=== PATIENT | male | born 1965 | race Caucasian/White ===

== ENCOUNTER 2017-03-05 13:01 | Emergency (ER) | payer BC ==
[2017-03-05 13:03] VITALS: TEMP 36.7; Ht 172.7 cm
[2017-03-05] MEDS ORDERED: MoRPHine SULFATE 10 MG/ML CARP/VIAL IM STA (13:31)
[2017-03-05] MEDS ORDERED: LISI2.5T5 PO (13:37)
[2017-03-05] MEDS ORDERED: GLIM1TAB2 PO (13:37)
[2017-03-05] MEDS ORDERED: GLC/500 PO (13:37)
[2017-03-05] MEDS ORDERED: EFF/375 PO (13:37)
[2017-03-05] MEDS ORDERED: EYED (13:37)
[2017-03-05] MEDS ORDERED: NVLG (13:37)
[2017-03-05] MEDS ORDERED: LISI5TAB PO (13:37)
[2017-03-05] MEDS ORDERED: INSDGIPEN SC (13:37)
--- NOTE | 2017-03-05 14:22 | DIAGNOSTIC IMAGING REPORT ---
PELVIS 1 OR 2 VIEW ROUTINE CLINICAL HISTORY: r hip pain COMPARISON: None. DISCUSSION: The bones and joint spaces appear intact. There is no evidence of fracture, dislocation or bony disease. There is no evidence for soft tissue swelling. IMPRESSION: Negative study. Electronically signed by: Aravind Stallworth M.D. 03/05/2017 2:21 PM Dictated Date/Time: 03/05/2017 2:20 PM
--- NOTE | 2017-03-05 14:26 | DIAGNOSTIC IMAGING REPORT ---
RIGHT FEMUR 2 VIEWS ROUTINE CLINICAL HISTORY: right fem pain Right pain COMPARISON: None. DISCUSSION: Findings of mild right hip trochanteric bursitis. Mild degenerative change right hip joint specifically as well as right knee. No well-defined acute bony abnormality. There is no evidence for soft tissue swelling. IMPRESSION: Mild degenerative change. Mild trochanteric bursitis right hip. Electronically signed by: Aravind Stallworth M.D. 03/05/2017 2:25 PM Dictated Date/Time: 03/05/2017 2:24 PM
--- NOTE | 2017-03-05 14:42 | DIAGNOSTIC IMAGING REPORT ---
LUMBAR SPINE 2 OR 3 VIEWS CLINICAL HISTORY: lower back pain pain COMPARISON STUDY: None FINDINGS: Mild degenerative disc change throughout the entire lumbar region. No compression deformity. Posterior on this. Be intact. No evidence for subluxation. IMPRESSION: Mild degenerative change. No acute process. Electronically signed by: Aravind Stallworth M.D. 03/05/2017 2:41 PM Dictated Date/Time: 03/05/2017 2:40 PM
[2017-03-05] MEDS ORDERED: OXYC1TAB3 PO (15:11)
[2017-03-05 15:30] VITALS: BP 97/76; PULSE 81; O2SAT 95
--- NOTE | 2017-03-05 20:04 | EMERGENCY ROOM VISIT NOTE ---
History Report prepared by Caitie: Juaquin Alejandre Under the Supervision of: Dr. Luis Manuel Read D.O. First contact with patient: 13:10 Chief Complaint: HIP PAIN Stated Complaint: RIGHT HIP, UPPER THIGH PAIN History of Present Illness The patient is a 51 year old male with a history of Type II Diabetes who presents to the Emergency Room with complaints of persistent right hip pain for the past week. The patient was working outdoors and bending down, and when he stood up he noticed the pain. The pain is worsened when bears weight on the right leg. He notes feeling a "tightening" sensation. He has had to lay down secondary to pain. The pain is also felt in the right upper leg and right side of his buttocks. He has tried Naproxen, Flexeril, heat and ice. He has not had any problems with urination or defecation. The patient denies history of trauma or back problems. He denies history of cancer, history of drug use, or recent surgeries. Patient denies headache, change in vision, fevers, chest pain, shortness of breath, nausea, vomiting, diarrhea, pain with urination, numbness in groin, weakness in legs, history of cancer, IV drug use, or recent trauma. Per who is a nurse, the patient has been on prednisone before and they were able to keep his BSG under control. Source of History: patient Onset: one week ago Position: other (right hip) Timing: other (persistent) Modifying Factors (Worsening): other (bearing weight on his right leg) Associated Symptoms: No fevers, No headache, No chest pain, No SOB, No nausea, No vomiting, No melena, No diarrhea, No urinary symptoms, No weakness, No numbness Review of Systems See HPI for pertinent positives & negatives. A total of 10 systems reviewed and were otherwise negative. Past Medical & Surgical Medical Problems: (1) Diabetes Family History Diabetes mellitus Hypertension Social History Smoking Status: Never Smoker Marital Status: Housing Status: lives with family Current/Historical Medications Scheduled Glimepiride (Glimepiride), 1 TAB PO DAILY Insulin Glargine (Lantus Solostar), 40 UNITS SC DAILY Lisinopril (Prinivil), 1 TAB PO DAILY Lisinopril (Lisinopril), 1 TAB PO DAILY Metformin Hcl (Glucophage), 500 MG PO BID Venlafaxine Hcl (Effexor), 1 TAB PO BID Scheduled PRN Oxycodone Immediate Rel Tab (Roxicodone Ir), 5 MG PO Q6H PRN for Pain Miscellaneous Medications Eye Drops (Eye Drops) Insulin Aspart (Novolog) Allergies Coded Allergies: No Known Allergies (Unverified , 03/05/17) Physical Exam Vital Signs Date Time Temp Pulse Resp B/P (MAP) Pulse Ox O2 Delivery O2 Flow Rate FiO2 03/05/17 15:30 81 16 97/76 95 03/05/17 14:44 78 18 147/89 95 Room Air 03/05/17 13:03 36.7 80 20 137/96 99 Room Air Physical Exam GENERAL: Sitting up in bed, alert, well appearing, well nourished, no distress, non-toxic EYE EXAM: normal conjunctiva. OROPHARYNX: no exudate, no erythema, lips, buccal mucosa, and tongue normal and mucous membranes are moist NECK: supple, no nuchal rigidity, no adenopathy, non-tender LUNGS: Clear to auscultation. Normal chest wall mechanics HEART: no murmurs, S1 normal and S2 normal ABDOMEN: abdomen soft, non-tender, normo-active bowel sounds, no masses, no rebound or guarding. BACK: Back is symmetrical on inspection and there is no deformity, no midline tenderness, no CVA tenderness. SKIN: no rashes and no bruising UPPER EXTREMITIES: upper extremities are grossly normal. LOWER EXTREMITIES: Flexion extension of hip knee ankle EHL 5/5 bilaterally, gross sensation is intact, DP 2/4 bilaterally, patellar and Achilles reflexes are 1/4 bilaterally. Acute reproducible tenderness right SI joint through the gluteus and into the right IT band. NEURO EXAM: Normal sensorium, cranial nerves II-XII grossly intact, normal speech, no gross weakness of arms, no gross weakness of legs. Gross sensation intact. Medical Decision & Procedures ER Provider Diagnostic Interpretation: Radiology results as stated below per my review and the radiologist's interpretation: RIGHT FEMUR 2 VIEWS ROUTINE CLINICAL HISTORY: right fem pain Right pain COMPARISON: None. DISCUSSION: Findings of mild right hip trochanteric bursitis. Mild degenerative change right hip joint specifically as well as right knee. No well-defined acute bony abnormality. There is no evidence for soft tissue swelling. IMPRESSION: Mild degenerative change. Mild trochanteric bursitis right hip. Electronically signed by: Aravind Stallworth M.D. 03/05/2017 2:25 PM Dictated Date/Time: 03/05/2017 2:24 PM LUMBAR SPINE 2 OR 3 VIEWS CLINICAL HISTORY: lower back pain pain COMPARISON STUDY: None FINDINGS: Mild degenerative disc change throughout the entire lumbar region. No compression deformity. Posterior on this. Be intact. No evidence for subluxation. IMPRESSION: Mild degenerative change. No acute process. Electronically signed by: Aravind Stallworth M.D. 03/05/2017 2:41 PM Dictated Date/Time: 03/05/2017 2:40 PM PELVIS 1 OR 2 VIEW ROUTINE CLINICAL HISTORY: r hip pain COMPARISON: None. DISCUSSION: The bones and joint spaces appear intact. There is no evidence of fracture, dislocation or bony disease. There is no evidence for soft tissue swelling. IMPRESSION: Negative study. Electronically signed by: Aravind Stallworth M.D. 03/05/2017 2:21 PM Dictated Date/Time: 03/05/2017 2:20 PM Medications Administered Medications (Trade) Dose Ordered Sig/Yang Route Start Time Stop Time Status Last Admin Dose Admin Morphine Sulfate (MoRPHine SULFATE INJ) 6 mg NOW STAT IM 03/05/17 13:31 03/05/17 13:33 DC 03/05/17 13:43 6 MG ED Course ED COURSE: Vital signs were reviewed and showed hypertension. The patients medical record was reviewed The above diagnostic studies were performed and reviewed. ED treatments and interventions as stated above. 1320: The patient was evaluated in room A9b. A complete history and physical examination was performed. 1331: Morphine Sulfate 6 mg IM. 1455: The patient is feeling better. 1500: Upon reevaluation, the patient is doing well.I discussed my findings with the patient and he understands and agrees with the treatment plan. Based on the patients age, coexisting illnesses, exam and lab findings the decision to treat as an outpatient was made. The patient remained stable while under my care. The patient appeared well at the time of discharge. Medical Decision Differential diagnoses includes but is not limited to lumbar radiculopathy, muscle strain, facture, cauda equina, mass, and disc herniation. Blood pressure screening: Patient was found to have an elevated blood pressure and was referred to their primary doctor for recheck and further treatment. Medication Reconciliation: I attest that I have personally reviewed the patient' s current medication list. Patient is a 51-year-old male who presents the ER for 3 days worth of right hip pain. He notes it radiates down the right side of his leg. He is acutely tender over the bursa and tracking through his IT band. He is completely neurologically intact. X-rays were negative. Able to ambulate without difficulty. No signs cauda equina. X-ray did suggest bursitis. I do favor this likely cause. Patient was given IM morphine with improvement of his pain. Initially discussed steroids but elected not to as he is a diabetic. Discussed with Pt concerning signs and symptoms to watch out for. Pt was instructed to follow up with their PCP and discussed with the patient their option to return to the ED at anytime for persistent or worsening symptoms. The appropriate anticipatory guidance and out-patient management, including indications for return to the emergency department, were explained at length to the patient and understood. [place] Drug Monitoring Program Search Results: patient reviewed within database, no issues identified Impression Primary Impression: Hip pain, right Scribe Attestation The scribe's documentation has been prepared under my direction and personally reviewed by me in its entirety. I confirm that the note above accurately reflects all work, treatment, procedures, and medical decision making performed by me. Departure Information Dispostion Home / Self-Care Prescriptions Oxycodone Immediate Rel Tab (ROXICODONE IR) 5 Mg Tab 5 MG PO Q6H Y for Pain, #10 TAB Prov: Luis Manuel Read, DO 03/05/17 Referrals Chiquita De La O, C.R.N.P. (PCP) Forms HOME CARE DOCUMENTATION FORM, IMPORTANT VISIT INFORMATION, WORK / SCHOOL INSTRUCTIONS Patient Instructions My [facility], Trochanteric Bursitis Additional Instructions Please follow up with your primary care doctor with in the next 24 hours. Any worsening of your symptoms, please return to the ED immediately. This includes fevers greater than 100.4, inability urinate, weakness in your legs, numbness in your groin, or any other concerning signs or symptoms from your standpoint. You were given medications during this visit that will inhibit your ability to drive, operate machinery and work. Please do NOT drive, operate machinery or work for the next 12hrs. You were also given a prescription for a narcotic/oxy IR. While taking this medication you should also not drive, operate machinery and or work.
[2017-05-06] MEDS ORDERED: CHOL20007 PO (14:11)
[2017-05-06] MEDS ORDERED: DULO60CA44 PO (14:11)
[2017-05-06] MEDS ORDERED: METF1TAB53 PO (14:11)
[2017-05-06] MEDS ORDERED: FENO48TA9 PO (14:11)
[2017-05-06] MEDS ORDERED: OXYC-88 PO (14:11)
[2017-05-06] MEDS ORDERED: LISI-461 PO (14:11)
== END 2017-03-05 15:31 | disposition home or self-care (01) ==
LOC: C.EDB 13:04 → C.EDA 15:31
DX: M25.551 Pain in right hip (principal); E11.9 Type 2 diabetes mellitus without complications; Z79.84 Long term (current) use of oral hypoglycemic drugs; Z79.4 Long term (current) use of insulin; Z83.3 Family history of diabetes mellitus; Z82.49 Family history of ischemic heart disease and other diseases of the circulatory system

== ENCOUNTER → 2017-04-17 | Outpatient (CLI) | payer BC ==
[~2017-04-17] MED LIST: CHOL20007 PO; DULO60CA44 PO; EFF/375 PO; EYED; FENO48TA9 PO; GLC/500 PO; GLIM1TAB2 PO; INSDGIPEN SC; LISI-461 PO; LISI2.5T5 PO; LISI5TAB PO; METF1TAB53 PO; NVLG; OXYC-88 PO; OXYC1TAB3 PO
[2017-04-17 13:24] LABS: ESTIMATED AVERAGE GLUCOSE 269 mg/dl; HA1C FLAG Normal (Normal)
[2017-04-17 13:26] LABS: URINE APPEARANCE CLEAR (CLEAR); URINE BILIRUBIN NEG (NEG); URINE COLOR DK YELLOW; URINE NITRITE NEG (NEG); URINE SPECIFIC GRAVITY 1.044 (1.000-1.030); UROBILINOGEN NEG (NEG); ZZUR CULT IF INDIC CLEAN CATCH NO
[2017-04-17 13:31] LABS: BASO % 0.4 %; BASO ABS # 0.04 K/uL (0-0.2); COMPLETE YES; EOS % 3.1 %; HEMATOCRIT 44.6 % (42-52); IG% 0.8 %; LYMPH % 36.8 %; LYMPH ABS # 3.57 K/uL (1.2-3.4); MEAN CELL VOLUME 85.3 fL (80-100); MEAN CORPUSCULAR HEMOGLOBIN 30.8 pg (25-34); MEAN CORPUSCULAR HGB CONC 36.1 g/dl (32-36); MEAN PLATELET VOLUME 9.4 fL (7.4-10.4); MONO % 6.5 %; NEUT % 52.4 %; PLATELET COUNT 357 K/uL (130-400); RED BLOOD COUNT 5.23 M/uL (4.7-6.1); WHITE BLOOD COUNT 9.69 K/uL (4.8-10.8)
[2017-04-17 13:33] LABS: MANUAL MICROSCOPIC REQUIRED? NO; REVIEW REQ? NO
[2017-04-17 14:00] LABS: RATIO 25.4 mcg/mg (0-30.0)
[2017-04-17 16:46] LABS: ALB/GLOB RATIO 0.9 (0.9-2); ALKALINE PHOSPHATASE 168 U/L (45-117); ALT/SGPT 31 U/L (12-78); AST/SGOT 13 U/L (15-37); BLOOD UREA NITROGEN 23 mg/dl (7-18); BUN/CREATININE RATIO 20.7 (10-20); CALCIUM 9.1 mg/dl (8.5-10.1); CARBON DIOXIDE 27 mmol/L (21-32); CHLORIDE 97 mmol/L (98-107); CHOLESTEROL 269 mg/dl (0-200); CHOLESTEROL/HDL RATIO 6.1; FERRITIN 435.3 ng/ml (8.0-388.0); GLUCOSE 386 mg/dl (70-99); HDL CHOLESTEROL 44 mg/dl; POTASSIUM 3.8 mmol/L (3.5-5.1); PROSTATE SPECIFIC ANTIGEN 0.244 ng/ml (0.000-4.000); SODIUM 132 mmol/L (136-145); TOTAL IRON BINDING CAPACITY 329 mcg/dl (250-450); TRIGLYCERIDES 620 mg/dl (0-150)
[2017-04-17 17:13] LABS: BETA-HYDROXYBUTYRATE 1.53 mg/dL (0.2-2.81)
--- NOTE | 2017-04-22 12:49 | CODING QUERY MEDICAL NECESSITY ---
CQSUPPORTING DIAGNOSIS NEEDED A supporting diagnosis is required for the test/procedure performed on this patient in order for us to be reimbursed by the patient's insurance. Please provide a supporting diagnosis for the following test/procedure listed below next to the test name along with your signature. *If there is no additional diagnosis for this patient that would support the following test/procedure please document that below next to the test/procedure. Test(s)/Procedure(s) that require a supporting diagnosis: DOS 04/17/17 PROSTATE SPECIFIC VITAMIN D TEST FOLIC ACID TEST COMPLETE BLOOD COUNT TEST Provider Signature: Date: Thank you Chelsea Avelar Health Information Management Once completed, please kindly fax back to [phone] For questions please call [phone]
== END | disposition home or self-care (01) ==
LOC: C.LAB 11:48
PROVIDERS: ATTEND Nurse Practitioner
DX: E11.9 Type 2 diabetes mellitus without complications (principal); I10 Essential (primary) hypertension; M25.551 Pain in right hip; E78.5 Hyperlipidemia, unspecified; R82.90 Unspecified abnormal findings in urine; E55.9 Vitamin D deficiency, unspecified; Z79.899 Other long term (current) drug therapy; Z79.891 Long term (current) use of opiate analgesic; E74.8 Other specified disorders of carbohydrate metabolism; M79.2 Neuralgia and neuritis, unspecified; G23.8 Other specified degenerative diseases of basal ganglia; E11.311 Type 2 diabetes mellitus with unspecified diabetic retinopathy with macular edema; R53.83 Other fatigue

== ENCOUNTER → 2017-08-05 | Outpatient (CLI) | payer BC ==
[~2017-08-05] MED LIST changes: -EFF/375 PO; -GLC/500 PO; -GLIM1TAB2 PO; -LISI2.5T5 PO; -LISI5TAB PO; -OXYC1TAB3 PO
[2017-08-05 13:10] LABS: BASO % 0.4 %; BASO ABS # 0.04 K/uL (0-0.2); COMPLETE YES; EOS % 13.5 %; HEMATOCRIT 41.3 % (42-52); IG% 0.2 %; LYMPH % 34.4 %; LYMPH ABS # 3.12 K/uL (1.2-3.4); MEAN CELL VOLUME 86.9 fL (80-100); MEAN CORPUSCULAR HEMOGLOBIN 30.5 pg (25-34); MEAN CORPUSCULAR HGB CONC 35.1 g/dl (32-36); MEAN PLATELET VOLUME 9.9 fL (7.4-10.4); MONO % 7.3 %; NEUT % 44.2 %; PLATELET COUNT 260 K/uL (130-400); RED BLOOD COUNT 4.75 M/uL (4.7-6.1); WHITE BLOOD COUNT 9.06 K/uL (4.8-10.8)
[2017-08-05 13:55] LABS: ALKALINE PHOSPHATASE 116 U/L (45-117); ALT/SGPT 40 U/L (12-78); AST/SGOT 19 U/L (15-37); BLOOD UREA NITROGEN 17 mg/dl (7-18); CALCIUM 9.5 mg/dl (8.5-10.1); CARBON DIOXIDE 29 mmol/L (21-32); CHLORIDE 96 mmol/L (98-107); CHOLESTEROL 243 mg/dl (0-200); CHOLESTEROL/HDL RATIO 4.6; FERRITIN 271.9 ng/ml (8.0-388.0); GLUCOSE 407 mg/dl (70-99); HDL CHOLESTEROL 53 mg/dl; LDL CHOLESTEROL CALCULATED 134 mg/dl; MAGNESIUM 1.4 mg/dl (1.8-2.4); POTASSIUM 4.3 mmol/L (3.5-5.1); SODIUM 129 mmol/L (136-145); TRIGLYCERIDES 280 mg/dl (0-150); VERY LOW DENSITY LIPOPROT CALC 56 mg/dl
[2017-08-05 13:56] LABS: CREATININE 1.19 mg/dl (0.60-1.40); TOTAL IRON BINDING CAPACITY 381 mcg/dl (250-450)
[2017-08-05 13:57] LABS: BUN/CREATININE RATIO 13.9 (10-20); ESTIMATED AVERAGE GLUCOSE 266 mg/dl; HA1C FLAG Normal (Normal)
[2017-08-05 14:09] LABS: BETA-HYDROXYBUTYRATE 1.12 mg/dL (0.2-2.81)
[2017-08-05 14:40] LABS: URINE APPEARANCE CLEAR (CLEAR); URINE BILIRUBIN NEG (NEG); URINE COLOR YELLOW; URINE NITRITE NEG (NEG); URINE SPECIFIC GRAVITY 1.033 (1.000-1.030); UROBILINOGEN NEG (NEG); ZZUR CULT IF INDIC CLEAN CATCH NO
[2017-08-05 14:42] LABS: MANUAL MICROSCOPIC REQUIRED? NO; REVIEW REQ? NO
[2017-08-05 15:04] LABS: CREATININE RANDOM URINE 86.2 mg/dl
[2017-08-05 15:15] LABS: RATIO 12.7 mcg/mg (0-30.0)
== END | disposition home or self-care (01) ==
LOC: C.LAB 11:44
PROVIDERS: ATTEND Nurse Practitioner
DX: E11.311 Type 2 diabetes mellitus with unspecified diabetic retinopathy with macular edema (principal); E78.5 Hyperlipidemia, unspecified; I10 Essential (primary) hypertension; E55.9 Vitamin D deficiency, unspecified; Z79.899 Other long term (current) drug therapy; M54.5 Low back pain; M54.10 Radiculopathy, site unspecified; F32.9 Major depressive disorder, single episode, unspecified; M25.551 Pain in right hip; M25.9 Joint disorder, unspecified; M70.61 Trochanteric bursitis, right hip

== ENCOUNTER → 2017-08-14 | Outpatient (CLI) | payer BC ==
[2017-08-14 17:36] LABS: ALT/SGPT 41 U/L (12-78); AST/SGOT 20 U/L (15-37); BLOOD UREA NITROGEN 15 mg/dl (7-18); BUN/CREATININE RATIO 17.5 (10-20); CALCIUM 8.8 mg/dl (8.5-10.1); CARBON DIOXIDE 28 mmol/L (21-32); CHLORIDE 104 mmol/L (98-107); CREATININE 0.84 mg/dl (0.60-1.40); GLUCOSE 112 mg/dl (70-99); MAGNESIUM 1.8 mg/dl (1.8-2.4); POTASSIUM 3.8 mmol/L (3.5-5.1); SODIUM 136 mmol/L (136-145)
[2017-08-14 17:39] LABS: ALKALINE PHOSPHATASE 107 U/L (45-117)
== END | disposition home or self-care (01) ==
LOC: C.CPL 15:06
PROVIDERS: ATTEND Nurse Practitioner
DX: E87.6 Hypokalemia (principal); E87.8 Other disorders of electrolyte and fluid balance, not elsewhere classified; E83.42 Hypomagnesemia; I49.9 Cardiac arrhythmia, unspecified; E11.9 Type 2 diabetes mellitus without complications; I10 Essential (primary) hypertension

== ENCOUNTER 2017-10-16 07:07 | Inpatient (IN) | payer BC ==
[2017-10-07 12:02] VITALS: Ht 172.7 cm; Wt 76.2 kg
--- NOTE | 2017-10-07 12:39 | PAT Medication Instructions ---
Service Date Oct 07, 2017. 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 Instructions For Your Scheduled Surgery - Hold the following medications 48 hours prior to surgery: Metformin Hcl (Glucophage Ext Rel), 1,000 MG PO BID - Hold the following medications the morning of surgery: Cholecalciferol (Vitamin D3), 1 TAB PO QAM Fenofibrate (Tricor), 48 MG PO QAM Glyburide (Micronase), 10 MG PO BID Insulin Aspart (Novolog) per SC Lisinopril (Lisinopril), 10 MG PO QAM [Magnesium], 1 TAB PO QAM - Take the following medications the morning of surgery with a sip of water: [Vicodin], 1-2 TAB PO Q6H PRN for RN (okay to take up to 4 hours prior to surgery if needed) Venlafaxine Hcl (Effexor), 37.5 MG PO BID Eye Drops (Eye Drops), 2 DROP OPL TID Duloxetine Hcl (Cymbalta), 60 MG PO BID - Take the following medications as scheduled the night before surgery: [Vicodin], 1-2 TAB PO Q6H PRN for RN (if needed) Venlafaxine Hcl (Effexor), 37.5 MG PO BID Glyburide (Micronase), 10 MG PO BID Eye Drops (Eye Drops), 2 DROP OPL TID Duloxetine Hcl (Cymbalta), 60 MG PO BID Insulin Aspart (Novolog) per SC Insulin Detemir (Levemir), 6 UNITS INJ BID - For Insulin Dependent Diabetic patients: Test blood sugar A.M. of surgery. - If Blood sugar greater than 150. take half of your regular dose of: Insulin Detemir (Levemir), take 30 units - If Blood sugar less than 150, do not take any: Insulin Detemir (Levemir ), 6 UNITS INJ BID If you have any questions please call us at [phone] or [phone] or [phone]
[2017-10-07 12:55] LABS: BASO % 0.3 %; BASO ABS # 0.03 K/uL (0-0.2); EOS % 10.2 %; EOS ABS # 0.96 K/uL (0-0.5); HEMATOCRIT 42.7 % (42-52); HEMOGLOBIN 15.1 g/dL (14.0-18.0); IG# 0.03 K/uL (0.00-0.02); LYMPH % 26.1 %; LYMPH ABS # 2.46 K/uL (1.2-3.4); MEAN CELL VOLUME 84.2 fL (80-100); MEAN CORPUSCULAR HEMOGLOBIN 29.8 pg (25-34); MEAN CORPUSCULAR HGB CONC 35.4 g/dl (32-36); MEAN PLATELET VOLUME 9.9 fL (7.4-10.4); MONO % 6.3 %; MONO ABS # 0.59 K/uL (0.11-0.59); NEUT % 56.8 %; NEUT ABS # 5.35 K/uL (1.4-6.5); PLATELET COUNT 271 K/uL (130-400); RED CELL DISTRIBUTION WIDTH CV 12.6 % (11.5-14.5); RED CELL DISTRIBUTION WIDTH SD 38.2 fL (36.4-46.3); WHITE BLOOD COUNT 9.42 K/uL (4.8-10.8)
[2017-10-07 13:02] LABS: INR 0.9 (0.9-1.1); PTT PATIENT 25.6 SECONDS (21.0-31.0)
--- NOTE | 2017-10-07 13:06 | DIAGNOSTIC IMAGING REPORT ---
CHEST 2 VIEWS ROUTINE CLINICAL HISTORY: 52 years-old Male presenting with preoperative assessment. TECHNIQUE: PA and lateral views of the chest were obtained. COMPARISON: None. FINDINGS: Atherosclerosis of the aortic arch. Cardiac silhouette normal in size. Lungs and pleural spaces clear. Osseous structures normal. Upper abdomen normal. IMPRESSION: 1. No acute cardiopulmonary disease. Electronically signed by: Osmar Piper M.D. 10/07/2017 1:05 PM Dictated Date/Time: 10/07/2017 1:03 PM
[2017-10-07 13:15] LABS: CREATININE 1.16 mg/dl (0.60-1.40); POTASSIUM 4.9 mmol/L (3.5-5.1)
--- NOTE | 2017-10-15 18:09 | HISTORY & PHYSICAL EXAMINATION ---
DATE OF ADMISSION: 10/16/2017 CHIEF COMPLAINT: Back and lower extremity difficulty. Working diagnosis of disc herniation, recurrent L4-L5, instability L4-L5, degenerative changes at L4-L5. He is being preoped for a posterior lumbar interbody fusion L4-5. He has failed conservative care and is looking for a surgical alternative to his pain. PAST MEDICAL HISTORY: Hypertension, high cholesterol, sleep apnea, diabetes on insulin. SURGICAL HISTORY: Denied. ALLERGIES: Negative. SOCIAL HISTORY: Nonsmoker, non-ETOH user. He has had no difficulty with anesthesia. MEDICATIONS: Lisinopril, Effexor, Percocet, prednisone, Lantus, NovoLog sliding scale for insulin. REVIEW OF SYSTEMS: He denies any blurred vision, tinnitus, vertigo or head trauma. Denies palpitations, chest pain, angina. Denies wheezing, shortness of breath. Denies nausea, vomiting, urgency, frequency, dysuria. His major complaint is back and lower extremity difficulties. PHYSICAL EXAMINATION: VITAL SIGNS: Blood pressure 130/80, pulse of 80, afebrile. HEENT: Normal. CARDIAC: Normal S1, S2, no S3. LUNGS: Clear to auscultation. ABDOMEN: Soft, nontender, bowel sounds present. MUSCULOSKELETAL: He has pain with flexion, extension of the spine. Pain with percussion of the lumbar spine. He has slight weakness of dorsiflexion, moderate pain with straight leg raising. ASSESSMENT: Includes that of a disc herniation, lumbar spine with instability and degenerative changes at L4-L5. DISPOSITION: Lumbar spine posterior lumbar interbody fusion L4-L5.
[~2017-10-16] VITALS: Ht 172.7 cm; Wt 76.2 kg
[2017-10-16] VITALS (8 sets, daily range): BP systolic 112–125; BP diastolic 72–81; PULSE 76–98; TEMP 36.4–37; O2SAT 93–100
[~2017-10-16 07:07] MED LIST changes: +CEFAZOLIN 2000MG IV PUSH 15 ML IV SCH; +EFF/375 PO; -EYED; +EYED OPL; +GLYB5TAB8 PO; -INSDGIPEN SC; +LACTATED RINGER'S 1000ML 1,000 ML IV SCH; +LVMI INJ; +MAGNESIUM PO; +NSS 1000ML IV SCH; -OXYC-88 PO; +VICODIN PO
[2017-10-16] MEDS ORDERED: BRIM0.2S OPL (09:02)
[2017-10-16] MEDS ORDERED: LATA0.5S OPL (09:02)
[2017-10-16] MEDS ORDERED: CYM/30 PO (09:02)
[2017-10-16] MEDS ORDERED: OMEG10007 PO (09:02)
[2017-10-16] MEDS ORDERED: DORZ2SOL17 OPL (09:02)
[2017-10-16] MEDS ORDERED: GABA-113 PO (09:02)
[2017-10-16] MEDS ORDERED: CO Q-10 PO (09:02)
[2017-10-16] MEDS ORDERED: B-CO1CAP17 PO (09:02)
[2017-10-16] MEDS ORDERED: DULO60CA44 PO (09:02)
[2017-10-16] MEDS ORDERED: LIDOCAINE HCL 2% 2 ML VIAL (20MG/ML) ONE (10:06)
[2017-10-16] MEDS ORDERED: GLYCOPYRROLATE INJ 0.2 MG/ML VIAL ONE (10:06)
[2017-10-16] MEDS ORDERED: PROPOFOL IV EMULSION 10 MG/ML 20 ML VIAL IV ONE (10:06)
[2017-10-16] MEDS ORDERED: DEXAMETHASONE SOD INJ 4 MG/ML VIAL ONE (10:06)
[2017-10-16] MEDS ORDERED: MIDAZOLAM HCL 1 MG/ML 2ML VIAL ONE (10:06)
[2017-10-16] MEDS ORDERED: PHENYLEPHRINE HCL INJ 10 MG/ML VIAL ONE ×2 (10:06→12:05)
[2017-10-16] MEDS ORDERED: EpHEDrine SULFATE INJ 50 MG/ML AMP ONE (10:06)
[2017-10-16] MEDS ORDERED: FENTANYL CITRATE INJ 50 MCG/1 ML 2 ML VIAL ONE ×3 (10:06→13:42)
[2017-10-16] MEDS ORDERED: ONDANSETRON INJ 2 MG/ML 2 ML VIAL ONE (10:06)
[2017-10-16] MEDS ORDERED: NEOSTIGMINE METHYLSULFATE 5 MG/5 ML SYR ONE (10:06)
[2017-10-16] MEDS ORDERED: SUCCINYLCHOLINE CHLORIDE 20 MG/ML 10 ML VIAL IV ONE (10:06)
[2017-10-16] MEDS ORDERED: BACITRACIN 50000 UNIT VIAL ONE (10:35)
[2017-10-16] MEDS ORDERED: BUPIVACAINE/EPINEPHRINE 0.5% MPF 1:200,000 30 ML VIAL ONE (10:35)
[2017-10-16] MEDS ORDERED: VANCOMYCIN HCL 1000MG/20ML VIAL ONE (10:35)
[2017-10-16] MEDS ORDERED: THROMBIN FOR SOLN 20000 UNIT KIT ONE (10:35)
[2017-10-16] MEDS ORDERED: GELATIN SPONGE SZ 100 ONE (10:35)
--- NOTE | 2017-10-16 10:44 | History & Physical Bridge Note ---
H&P Re-Evaluation Bridge Note: I have examined the patient, reviewed the History & Physical and in the interval since the performance of the History & Physical I have noted the following changes of clinical significance: No changes noted
[2017-10-16] MEDS ORDERED: HYDROmorphone INJ 2 MG/ML SYR/VIAL ONE (11:21)
[2017-10-16] MEDS ORDERED: EpHEDrine SULFATE 50MG/5ML SYR ONE (11:59)
[2017-10-16] MEDS ORDERED: SODIUM CHLORIDE 0.9% 1000ML 1,000 ML IV SCH (13:39)
--- NOTE | 2017-10-16 13:42 | [facility] Post Operative Brief Note ---
Immediate Operative Summary Operative Date Oct 16, 2017. Pre-Operative Diagnosis disc herniation, lumbar spine with instability and degenerative changes at L4-L5. Post-Operative Diagnosis disc herniation, lumbar spine with instability and degenerative changes at L4-L5. Procedure(s) Performed L4-L5 Posterior Lumbar Interbody Fusion Surgeon Dr. Goodrich Emblem Cutter Surgeon(s) Bruce Paulson PA-C Estimated Blood Loss 350 ml Findings Consistent with Post-Op Diagnosis Specimens none per surgeon Drains hemovac Anesthesia Type General Complication(s) none Disposition Accompanied Pt To Recover: Disposition: Recovery Room / PACU
[2017-10-16] MEDS ORDERED: LORAZEPAM INJ 1 MG in SYRINGE 0.5 ML IV PRN (13:45)
[2017-10-16] MEDS ORDERED: NALOXONE HCL 0.4 MG/1 ML VIAL/CARP IV PRN ×2 (13:45→14:00)
[2017-10-16] MEDS ORDERED: ACETAMINOPHEN 325 MG TAB PO PRN (13:45)
[2017-10-16] MEDS ORDERED: METOCLOPRAMIDE HCL INJ 5 MG/ML 2 ML VIAL IV PRN (13:45)
[2017-10-16] MEDS ORDERED: ONDANSETRON INJ 2 MG/ML 2 ML VIAL IV PRN ×2 (13:45→14:00)
[2017-10-16] MEDS ORDERED: MAGNESIUM HYDROXIDE SUSP 30 ML UDC PO PRN (13:45)
[2017-10-16] MEDS ORDERED: LORAZEPAM 1 MG TAB PO PRN (13:45)
[2017-10-16] MEDS ORDERED: PROMETHAZINE HCL INJ 12.5 MG in SODIUM CHLORIDE 0.9% 50ML 50 ML IV PRN ×2 (13:45→14:00)
[2017-10-16] MEDS ORDERED: HYDROmorphone HCL 0.5MG/ML 50 ML CASSETTE ONE (13:55)
[2017-10-16] MEDS ORDERED: HYDROmorphone INJ 0.5 MG/0.5 ML SYR ONE (13:59)
[2017-10-16] MEDS ORDERED: LABETALOL HCL IV 5 MG/ML 20ML IV PRN (14:00)
[2017-10-16] MEDS ORDERED: FLUMAZENIL 0.1 MG/1 ML 10 ML VIAL IV PRN (14:00)
[2017-10-16] MEDS ORDERED: ATROPINE SULFATE 0.1 MG/ML 5ML SYR IV PRN (14:00)
[2017-10-16] MEDS ORDERED: EpHEDrine SULFATE INJ 50 MG/ML AMP IV PRN (14:00)
[2017-10-16] MEDS ORDERED: NovoLIN-R INSULIN PER UNIT CHARGE ONE (14:06)
--- NOTE | 2017-10-16 14:07 | OPERATIVE REPORT ---
DATE OF OPERATION: 10/16/2017 PREOPERATIVE DIAGNOSES: Instability, disc herniation, stenosis L4-L5 lumbar spine. POSTOPERATIVE DIAGNOSES: Same. PROCEDURE: Included a posterior approach lumbar spine decompression, laminectomy of L4, partial L5, foraminotomy, partial facetectomy, disc excision bilaterally L4-L5. Instrumentation pedicle screw instrumentation L4 and L5. Posterior lateral fusion L4-L5 and posterior lumbar interbody fusion at L4-L5. IMPLANTS USED: Futubra. COMPLICATIONS: Zero. BLOOD LOSS: 300-400 mL Sponge and needle count correct at the close of the procedure. DESCRIPTION OF PROCEDURE: The patient was taken to the operating room. A general intubated anesthetic provided to the patient, placed prone, scrubbed, prepped sterile. We made a skin incision from the bottom of 3 down to the top of S1 dissecting the soft tissue, came out over the facet joints and transverse processes. I put in a deep self-retaining retractor. I was able to decompress the neural elements essentially taking off the entire backside of the lamina of L4, partial of L5. We completed the foraminotomy, decompressed the nerve roots, which would be L4 and L5 bilaterally. We then instrumented the spine. Pedicle screws were placed at L4, pedicle screws placed at L5. We meticulously provided this technique. We used anatomic guidelines plus C-arm imaging AP and lateral. We then retracted the dura over the medial direction from both sides, did a complete discectomy, cleaning out the intervertebral disc itself. We were then able to put in the implant or cage into the vacated discectomy site. We then were able to get the interbodies 12 mm in height, 8 mm across, 22 mm in depth bilaterally. We then clamped down on the construct with pedicle screws. We then irrigated thoroughly. We bone grafted out over the transverse processes. We closed in layers with #1 Vicryl, 2-0 and 3-0, staple gun on the skin. Sterile dressing applied. The patient returned to the recovery room satisfactory and stable. There were no apparent complications. I attest to the content of the Intraoperative Record and any orders documented therein. Any exception s are noted below.
[2017-10-16] MEDS ORDERED: NovoLIN-R INSULIN PER UNIT CHARGE IV STA (14:08)
[2017-10-16] MEDS: HYDROmorphone INJ 0.5 MG/0.5 ML SYR IV PRN ×2 (14:43→14:48)
--- NOTE | 2017-10-16 14:44 | DIAGNOSTIC IMAGING REPORT ---
SPINE ONE VIEW, ANY LEVEL HISTORY: 52 years-old Male L4-L5 POSTERIOR LUMBAR INTERBODY FUSION status post L4-L5 decompression with fusion COMPARISON: Lumbar spine MRI 09/29/2017 TECHNIQUE: 2 spot fluoroscopic images of the lumbar spine were obtained utilizing 18.1 seconds fluoroscopy time. FINDINGS: Postoperative changes compatible with posterior decompression with interbody fusion from a posterior approach noted at L4-L5 along with discectomy. Pedicle screws are noted without rods at this time. Alignment appears satisfactory. Multilevel endplate spurring is noted. Hardware appears intact. IMPRESSION: Status post posterior decompression, fusion and discectomy at L4-L5. The above report was generated using voice recognition software. It may contain grammatical, syntax or spelling errors. Electronically signed by: Jorge Luis Mohamud M.D. 10/16/2017 2:42 PM Dictated Date/Time: 10/16/2017 2:40 PM
--- NOTE | 2017-10-16 15:13 | Anesthesiology Progress Note ---
Anesthesia Post Op Note Date & Time Oct 16, 2017 at 15:11 Vital Signs Pain Intensity: 5 Vital Signs Past 12 Hours Date Time Temp Pulse Resp B/P (MAP) Pulse Ox O2 Delivery O2 Flow Rate FiO2 10/16/17 15:05 98 18 125/84 98 Nasal Cannula 4 10/16/17 14:55 37.4 96 18 129/84 98 Nasal Cannula 4 10/16/17 14:45 96 18 133/85 98 Nasal Cannula 4 10/16/17 14:35 93 18 139/87 98 Nasal Cannula 4 10/16/17 14:25 93 18 134/85 98 Nasal Cannula 4 10/16/17 14:15 92 18 133/88 98 Nasal Cannula 4 10/16/17 14:05 83 18 139/97 100 Oxymask 10 10/16/17 13:55 78 18 138/85 99 Oxymask 10 10/16/17 13:49 36.0 82 18 130/91 100 Oxymask 10 10/16/17 08:37 36.7 76 16 112/77 100 Room Air Notes Mental Status: alert / awake / arousable, participated in evaluation Pt Amnestic to Procedure: Yes Nausea / Vomiting: adequately controlled Pain: adequately controlled Airway Patency, RR, SpO2: stable & adequate BP & HR: stable & adequate Hydration State: stable & adequate Anesthetic Complications: no major complications apparent pt to be discharged to floor after being treated with 20 units regular insulin 1 hour ago.Glucose then was 274;it is now 236.
[2017-10-16] MEDS ORDERED: GLUCOSE 40% GEL 15 GM TUBE PO PRN ×2 (15:45→19:15)
[2017-10-16] MEDS ORDERED: GLUCAGON FOR INJ 1 MG VIAL SQ PRN ×2 (15:45→19:15)
[2017-10-16] MEDS ORDERED: GLUCOSE 10 TABS/TUBE PO PRN ×2 (15:45→19:15)
[2017-10-16] MEDS ORDERED: DEXTROSE 50% 50 ML SYR IV PRN (15:45)
[2017-10-16] MEDS: HYDROmorphone HCL 0.5MG/ML 50 ML CASSETTE IV PRN ×2 (15:50→19:15)
[2017-10-16 16:33] LABS: HEMATOCRIT 35.9 % (42-52); HEMOGLOBIN 12.6 g/dL (14.0-18.0)
[2017-10-16] MEDS: DEXAMETHASONE INJ 10 MG in SYRINGE 0 ML IV SCH (17:46)
[2017-10-16] MEDS: KETOROLAC TROMETHAMINE 30 MG/ML VIAL IV SCH ×2 (17:46→22:08)
[2017-10-16] MEDS: SODIUM CHLORIDE 0.9% 1000ML 1,000 ML IV SCH (17:47)
[2017-10-16] MEDS: METFORMIN HCL 500 MG TABCR PO SCH (17:48)
[2017-10-16] MEDS: CEFAZOLIN IV 1,000 MG in SYRINGE 0 ML IV SCH (19:54)
[2017-10-16] MEDS ORDERED: INSULIN DETEMIR FLEXPEN/FLEX TOUCH 100 UNITS/ML 3ML SQ SCH (21:00)
[2017-10-16] MEDS ORDERED: INSULIN ASPART 100 UNITS/ML 3 ML PEN SC SCH (21:45)
[2017-10-16] MEDS: GABAPENTIN 300 MG CAP PO SCH (21:55)
[2017-10-16] MEDS: LATANOPROST 0.005% OP SOLN 2.5 ML BTL OPL SCH (21:56)
[2017-10-16] MEDS: DORZOLAMIDE HCL 2% OPH SOLN 10 ML BTL OPL SCH (21:56)
[2017-10-17] MEDS: DEXAMETHASONE INJ 10 MG in SYRINGE 0 ML IV SCH (01:20)
[2017-10-17 03:38] VITALS: BP 121/74; PULSE 89; TEMP 37; O2SAT 96
[2017-10-17] MEDS: CEFAZOLIN IV 1,000 MG in SYRINGE 0 ML IV SCH ×2 (03:53→11:11)
[2017-10-17] MEDS: KETOROLAC TROMETHAMINE 30 MG/ML VIAL IV SCH (05:38)
[2017-10-17] MEDS ORDERED: DC PCA SCH (06:00)
[2017-10-17] MEDS ORDERED: OXYCODONE/ACETAMINOPHEN 5-325 TAB PO PRN ×3 (06:00→08:00)
[2017-10-17] MEDS ORDERED: BISACODYL 5 MG TABEC PO PRN (06:00)
[2017-10-17] MEDS ORDERED: HYDROmorphone INJ 1 MG/ML SYR IV PRN ×2 (06:00→08:00)
[2017-10-17] MEDS ORDERED: BISACODYL 10 MG SUPP PR PRN (06:00)
[2017-10-17] MEDS ORDERED: HYDROmorphone INJ 2 MG/ML SYR/VIAL IV PRN ×2 (06:00→08:00)
[2017-10-17] MEDS: SODIUM CHLORIDE 0.9% 1000ML 1,000 ML IV SCH ×3 (06:19→23:23)
[2017-10-17] MEDS: INSULIN ASPART 100 UNITS/ML 3 ML PEN SC SCH ×6 (08:00→21:14)
[2017-10-17 08:09] VITALS: BP 112/72; PULSE 80; TEMP 36.5; O2SAT 91
[2017-10-17 08:18] LABS: HEMATOCRIT 28.4 % (42-52); HEMOGLOBIN 10.1 g/dL (14.0-18.0); MEAN CELL VOLUME 83.8 fL (80-100); MEAN CORPUSCULAR HEMOGLOBIN 29.8 pg (25-34); MEAN CORPUSCULAR HGB CONC 35.6 g/dl (32-36); MEAN PLATELET VOLUME 8.8 fL (7.4-10.4); PLATELET COUNT 213 K/uL (130-400); RED CELL DISTRIBUTION WIDTH CV 12.7 % (11.5-14.5); RED CELL DISTRIBUTION WIDTH SD 38.7 fL (36.4-46.3); WHITE BLOOD COUNT 13.71 K/uL (4.8-10.8)
[2017-10-17] MEDS ORDERED: PHARMACY GLYCEMIC MGMT CONSULT PRN (08:18)
[2017-10-17 08:44] VITALS: O2SAT 91
[2017-10-17] MEDS ORDERED: INSULIN HUMAN REGULAR IV BOLUS 8 UNIT in SYRINGE 0 ML IV SCH (08:45)
[2017-10-17 08:50] LABS: CALCIUM 8.1 mg/dl (8.5-10.1); CREATININE 1.63 mg/dl (0.60-1.40); POTASSIUM 5.5 mmol/L (3.5-5.1)
[2017-10-17] MEDS ORDERED: LISINOPRIL 10 MG TAB PO SCH (09:00)
[2017-10-17] MEDS ORDERED: MAGNESIUM OXIDE 400 MG TAB PO SCH (09:00)
[2017-10-17] MEDS ORDERED: CO Q10 200 MG PO SCH (09:00)
[2017-10-17] MEDS: INSULIN REGULAR 250 UNITS in SODIUM CHLORIDE 0.9% 250ML 250 ML IV SCH ×13 (09:02→22:27)
[2017-10-17] MEDS: INSULIN DETEMIR FLEXPEN/FLEX TOUCH 100 UNITS/ML 3ML SQ SCH ×2 (09:04→20:44)
[2017-10-17] MEDS: METFORMIN HCL 500 MG TABCR PO SCH (09:05)
[2017-10-17] MEDS: CHOLECALCIFEROL 1000 INTER.UNIT TAB PO SCH (09:09)
[2017-10-17] MEDS: DULOXETINE (CYMBALTA) 30 MG CAP PO SCH (09:09)
[2017-10-17] MEDS: DULOXETINE HCL 60 MG CAP PO SCH (09:09)
[2017-10-17] MEDS: FENOFIBRATE 48 MG TAB PO SCH (09:09)
[2017-10-17] MEDS: NEPHROCAPS PO SCH (09:09)
[2017-10-17] MEDS: GABAPENTIN 300 MG CAP PO SCH ×2 (09:09→20:42)
[2017-10-17] MEDS: DORZOLAMIDE HCL 2% OPH SOLN 10 ML BTL OPL SCH ×2 (09:09→20:46)
[2017-10-17] MEDS: POLYETHYLENE (MIRALAX) 17 GM PACK PO SCH (09:10)
[2017-10-17] MEDS ORDERED: HydrALAZINE HCL 20 MG/ML VIAL IV. PRN (09:45)
--- NOTE | 2017-10-17 09:45 | Clinical Documentation Query ---
MARTHA Thompson : CLINICAL DOCUMENTATION QUERY Patient is a 52 year old male who underwent posterior lumbar spine decompression and posterolateral and interbody fusion of L4-L5. EBL for the procedure was 300-400 ml's with subsequent losses totaling an additional 265 ml's to date. Additionally, net I/O is positive for about 3 liters. Preoperative H&H was 15.1 g/dl and 42.7%. POD #1, repeat values are 10.1 g/dl and 28.4%. He is being monitored with serial hematology and I/O including drain outputs. In your clinical opinion is this patient being managed for: ( ) Acute blood loss and hemodilutional anemia ( ) Not Agree ( ) Other explanation of clinical findings (Please Explain) ( ) Unable to determine (Please Define) ( ) Need to Discuss The medical record reflects the following clinical findings, treatment, and risk factors. Clinical Indicators: As above Treatment: He is being monitored with serial hematology and I/O including drain outputs. Risk Factors: Acute perioperative blood losses and IVF administration Please clarify and document your clinical opinion in the progress notes and discharge summary. Terms such as "probable", "suspected", "likely", "questionable", "possible", or "still to be ruled out" are acceptable. IF IN AGREEMENT, YOU MUST DOCUMENT ABOVE DIAGNOSTIC STATEMENT IN DAILY PROGRESS NOTES AND DISCHARGE SUMMARY. This document is not part of the patient's record. Thank You, Bruce Walters, MATTHEW [phone]
--- NOTE | 2017-10-17 09:47 | Clinical Documentation Query ---
ALVERTO Colon : CLINICAL DOCUMENTATION QUERY Patient is a 52 year old male who underwent posterior lumbar spine decompression and posterolateral and interbody fusion of L4-L5. EBL for the procedure was 300-400 ml's with subsequent losses totaling an additional 265 ml's to date. Additionally, net I/O is positive for about 3 liters. Preoperative H&H was 15.1 g/dl and 42.7%. POD #1, repeat values are 10.1 g/dl and 28.4%. He is being monitored with serial hematology and I/O including drain outputs. In your clinical opinion is this patient being managed for: (x ) Acute blood loss and hemodilutional anemia ( ) Not Agree ( ) Other explanation of clinical findings (Please Explain) ( ) Unable to determine (Please Define) ( ) Need to Discuss The medical record reflects the following clinical findings, treatment, and risk factors. Clinical Indicators: As above Treatment: He is being monitored with serial hematology and I/O including drain outputs. Risk Factors: Acute perioperative blood losses and IVF administration Please clarify and document your clinical opinion in the progress notes and discharge summary. Terms such as "probable", "suspected", "likely", "questionable", "possible", or "still to be ruled out" are acceptable. IF IN AGREEMENT, YOU MUST DOCUMENT ABOVE DIAGNOSTIC STATEMENT IN DAILY PROGRESS NOTES AND DISCHARGE SUMMARY. This document is not part of the patient's record. Thank You, Bruce Walters, RN [phone]
[2017-10-17] MEDS: MAGNESIUM OXIDE 400 MG TAB PO SCH (09:52)
[2017-10-17] MEDS: OXYCODONE/ACETAMINOPHEN 5-325 TAB PO PRN ×3 (09:53→23:05)
--- NOTE | 2017-10-17 09:58 | Pharmacy Progress Note ---
Glycemic Control Intl Consult Date of Service Oct 17, 2017. Scope Glycemic Pharmacist consulted by Bruce Pauslon on 10/17/17 for glycemic control and to write orders per [facility] inpatient glycemic control protocol Objective Weight (Kilograms): 76.200 Accuchecks BSG (last 24hrs): Test 10/16/17 14:02 10/16/17 14:24 10/16/17 14:37 10/16/17 15:10 Bedside Glucose 274 mg/dl (70-99) 301 mg/dl (70-99) 255 mg/dl (70-99) 236 mg/dl (70-99) Test 10/16/17 16:57 10/16/17 20:25 10/17/17 08:05 10/17/17 08:10 Bedside Glucose 234 mg/dl (70-99) 348 mg/dl (70-99) 381 mg/dl (70-99) Random Glucose 379 mg/dl (70-99) Laboratory Data (last 24hrs) Test 10/17/17 08:05 Anion Gap 9.0 mmol/L BUN/Creatinine Ratio 29.2 Blood Urea Nitrogen 48 mg/dl Creatinine 1.63 mg/dl Potassium Level 5.5 mmol/L Sodium Level 132 mmol/L White Blood Count 13.71 K/uL Recent Pertinent Medications Outpatient Anti-diabetic Regimen: * Levemir 60 units SQ BID plus Novolog per sliding scale (~30-35 units/day) * A1c = 10.9 % 08/05/17 The patient is currently receiving: * Basal insulin: Lantus 50 units every 12 hours - starting 10/16/17 in the PM * Correctional Insulin: Novolog Correction per scale ACHS Goal Range: Low 110 mg/dL - High 140 mg/dL Correction Factor: 20 mg/dL/unit * Prandial insulin: Per carb ratio of 1 unit per 10 grams CHO consumed * Oral Agents: Risk Factors for Insulin Resistance: * Steroids: dexamethasone 4 mg IV intraoperatively plus dexamethasone 10 mg IV q8 hours x 5 doses * Recent Surgery: POD 1 for back surgery * Diet: type 2 diet Assessment & Plan ASSESSMENT: * Mr Card is a 52 y/o M who is POD 1 for back surgery. The patient took Levemir 30 units the day prior to surgery and then did not take his Levemir the morning of surgery. His home Levemir dose was restarted yesterday night. Novolog was not ordered until the evening when he received 10 units. He received 20 units of regular insulin around 1400 yesterday. Patient's blood sugar yesterday was 196-348 mg/dL. The patient's fasting blood sugar is 379 mg/ dL. * We were consulted this morning. The patient is extremely basal deficient ( only received half of his basal dose yesterday) along with high doses of steroids. Spoke with Bruce Paulson and had the dexamethasone discontinued after two doses. Since the patient was basal deficient with already elevated blood sugars, received the okay to start insulin infusion to provide coverage until basal insulin is repleted. Will fix carbohydrate ratio at 1 unit per 3 grams of carbohydrates received (this is home dose stressed by 2). Plan to continue insulin infusion x 24 hours. Continue home Levemir 60 units twice daily. Hold metformin. PLAN FOR INPATIENT GLYCEMIC CONTROL: * Insulin infusion per protocol with goal range of 100 -150 mg/dL * Holding outpatient oral diabetes medications * Basal insulin with LANTUS 60 units SQ BID * Correctional Insulin with NOVOLOG per scale ACHS or Q6hrs while NPO * Goal Range: Low -- mg/dL - High -- mg/dL * Correction Factor: -- mg/dL/unit * Nutritional / Prandial insulin per carb ratio of 1 unit per 3 grams CHO consumed * Please note that the plan above was derived based on current level of insulin resistance and hospital stress. These recommendations are appropriate for inpatient admission only. Plan of care upon discharge will need to be reassessed to avoid potential outpatient hypo/hyperglycemia. Thank you.
--- NOTE | 2017-10-17 10:07 | Medical Consult ---
Consultation Date of Consultation: Oct 17, 2017. Attending Physician: Thomas Goodrich DO Reason for Consultation: Medical management History of Present Illness Patient is a 69 y/o male, with PMHx of T2DM, HTN, HLD, and depression, s/p lumbar surgery by Dr. Goodrich on 10/16. Hospitalist team was consulted for medical management. Patient is resting in bed. Eating and drinking OK. Pain is currently well controlled at 3-12/16. +flatus, no BM postop. Patient denies any fever, chills, sweats, lightheadedness, dizziness, vision changes, CP, palpitations, edema, SOB, wheezing, cough, abdominal pain, nausea, vomiting, diarrhea, urinary symptoms, melena, numbness/tingling, weakness, anxiety/ depression, active bleeding, or new skin discoloration/changes. Past Medical/Surgical History Medical Problems: T2DM HTN HLD depression Family History Diabetes mellitus Hypertension Social History Smoking Status: Former Smoker Alcohol Use: none Marital Status: Housing Status: lives with family Occupation Status: unemployed Allergies Coded Allergies: No Known Allergies (Unverified , 10/16/17) Home Medications Reported Home Medications Medications Dose Route/Sig Max Daily Dose Days Date Category Dose Instructions Xalatan 0.005% Oph Amanda (Latanoprost) 0.005 % Amanda 1 Drops OPL HS 10/16/17 Reported Trusopt Oph (Dorzolamide Hcl) 2 % Amanda 1 Drops OPL BID 10/16/17 Reported Combigan (Brimonidine Tartrate-Timolol M) 1 Amanda Amanda 1 Drop OPL BID 10/16/17 Reported Cymbalta (Duloxetine HCl) 30 Mg Cap 1 Cap PO DAILY 30 10/16/17 Reported Cymbalta (Duloxetine Hcl) 60 Mg Cap 1 Cap PO DAILY 90 10/16/17 Reported Dennis-3 (Fish Oil) 1 Ea Cap 1 Cap PO DAILY 10/16/17 Reported Nephrocaps (Vitamin B Complex/Vit C/Folic Acid) Cap 1 Cap PO DAILY 30 10/16/17 Reported [Co Q-10] 200 Mg PO DAILY 10/16/17 Reported Neurontin (Gabapentin) 300 Mg Cap 600 Mg PO BID 10/16/17 Reported [Magnesium] 1 Tab PO QAM 10/07/17 Reported Levemir (Insulin Detemir) 100 Units/Ml Inj 50 Units INJ BID 10/07/17 Reported [Vicodin] 1-2 Tab PO Q6H PRN 10/07/17 Reported 5/325 MG Vitamin D3 (Cholecalciferol) 2,000 Unit Tab 1 Tab PO QAM 05/06/17 Reported Tricor (Fenofibrate) 48 Mg Tab 48 Mg PO QAM 05/06/17 Reported Glucophage Ext Rel (Metformin Hcl) 1,000 Mg Tab 1,000 Mg PO BID 05/06/17 Reported Lisinopril 10 Mg Tab 10 Mg PO QAM 05/06/17 Reported Eye Drops (Miscellaneous) Drp 2 Drop OPL TID 03/05/17 Reported Novolog (Insulin Aspart) 100 Units/Ml Inj 03/05/17 Reported USES SLIDING SCALE Current Inpatient Medications Current Inpatient Medications Medications (Trade) Dose Ordered Sig/Yang Route Start Time Stop Time Status Last Admin Dose Admin Diphenhydramine HCl (Benadryl Cap) 25 mg Q6H PRN PO 10/16/17 13:45 11/15/17 13:44 Magnesium Hydroxide (Milk Of Magnesia Susp) 30 ml DAILY PRN PO 10/16/17 13:45 11/15/17 13:44 Bisacodyl (Dulcolax Supp) 10 mg DAILY PRN DC 10/17/17 06:00 11/16/17 05:59 Bisacodyl (Dulcolax Tab) 5 mg DAILY PRN PO 10/17/17 06:00 11/16/17 05:59 Polyethylene (Miralax Powder Packet) 17 gm DAILY PO 10/17/17 09:00 11/16/17 08:59 Lorazepam 1 mg/ Syringe 1 ml @ 1 mls/min Q6H PRN IV 10/16/17 13:45 11/15/17 13:44 Lorazepam (Ativan Tab) 1 mg Q6H PRN PO 10/16/17 13:45 11/15/17 13:44 Metoclopramide HCl (Reglan Inj) 10 mg Q6H PRN IV 10/16/17 13:45 11/15/17 13:44 Ondansetron HCl (Zofran Inj) 4 mg Q6H PRN IV 10/16/17 13:45 11/15/17 13:44 Promethazine HCl 12.5 mg/Sodium Chloride 50.5 ml @ 202 mls/hr Q6H PRN IV 10/16/17 13:45 11/15/17 13:44 Ketorolac Tromethamine (Toradol Inj) 30 mg Q6H IV 10/16/17 17:00 10/17/17 17:01 10/17/17 05:38 30 MG Acetaminophen (Tylenol Tab) 650 mg Q6H PRN PO 10/16/17 13:45 11/15/17 13:44 Cefazolin Sodium 1000 mg/Syringe 7.5 ml @ 1.875 mls/ min Q8H IV 10/16/17 19:00 10/17/17 18:59 10/17/17 03:53 1.875 MLS/MIN Dexamethasone Sodium Phosphate 10 mg/Syringe 2.5 ml @ 1 mls/min Q8H IV 10/16/17 17:00 10/18/17 01:03 10/17/17 01:20 1 MLS/MIN Sodium Chloride 1,000 ml @ 80 mls/hr [id number] IV 10/16/17 14:00 11/15/17 13:59 10/17/17 06:19 80 MLS/HR Dorzolamide HCl (Trusopt 2% Oph Soln) 1 drops BID OPL 10/16/17 21:00 11/15/17 20:59 10/16/17 21:56 1 DROPS Duloxetine HCl (Cymbalta Cap) 30 mg DAILY PO 10/17/17 09:00 11/16/17 08:59 Duloxetine HCl (Cymbalta Cap) 60 mg DAILY PO 10/17/17 09:00 11/16/17 08:59 Fenofibrate (Tricor Tab) 48 mg QAM PO 10/17/17 09:00 11/16/17 08:59 Gabapentin (Neurontin Cap) 600 mg BID PO 10/16/17 21:00 11/15/17 20:59 10/16/17 21:55 600 MG Latanoprost (Xalatan Oph Soln) 1 drops HS OPL 10/16/17 21:00 11/15/17 20:59 10/16/17 21:56 1 DROPS Lisinopril (Zestril Tab) 10 mg QAM PO 10/17/17 09:00 11/16/17 08:59 Metformin HCl (Glucophage Extended Rel Tab) 1,000 mg BIDM PO 10/16/17 17:45 11/15/17 17:44 10/16/17 17:48 1,000 MG Vitamin B Complex/ Vit C/Folic Acid (Nephrocaps) 1 cap DAILY PO 10/17/17 09:00 11/16/17 08:59 Miscellaneous Information (Order Awaiting Action) 1 ea QS N/A 10/17/17 16:13 11/16/17 16:12 Cholecalciferol (Vitamin D Tab) 2,000 inter.unit QAM PO 10/17/17 09:00 11/16/17 08:59 Miscellaneous Information (Order Awaiting Action) 1 ea QS N/A 10/17/17 00:00 11/16/17 00:00 10/17/17 07:18 1 EA Insulin Detemir (Levemir Flexpen/ FlexTouch) 50 units BID SQ 10/16/17 21:00 11/15/17 20:59 10/16/17 22:03 50 UNITS Magnesium Oxide (Mag-Ox Tab) 1 mg QAM PO 10/17/17 09:00 11/16/17 08:59 Glucose (Glucose 40% Gel) 15-30 GRAMS 15 GRAMS... UD PRN PO 10/16/17 15:45 11/15/17 15:44 Glucose (Glucose Chew Tab) 4-8 Tablets 4 Tabl... UD PRN PO 10/16/17 15:45 11/15/17 15:44 Dextrose (Dextrose 50% 50ML Syringe) 25-50ML OF 50% DW IV FOR... UD PRN IV 10/16/17 15:45 11/15/17 15:44 Glucagon (Glucagon Inj) 1 mg UD PRN SQ 10/16/17 15:45 11/15/17 15:44 Glucagon (Glucagon Inj) 1 mg UD PRN SQ 10/16/17 19:15 11/15/17 19:14 Glucose (Glucose 40% Gel) 15-30 GRAMS 15 GRAMS... UD PRN PO 10/16/17 19:15 11/15/17 19:14 Glucose (Glucose Chew Tab) 4-8 Tablets 4 Tabl... UD PRN PO 10/16/17 19:15 11/15/17 19:14 Insulin Aspart (novoLOG ASPART) SLIDING SCALE If C... ACHS SC 10/17/17 08:00 11/16/17 07:59 Oxycodone/ Acetaminophen (Percocet 5-325mg Tab) 2 tab Q4H PRN PO 10/17/17 06:00 10/31/17 05:59 Oxycodone/ Acetaminophen (Percocet 5-325mg Tab) 1 tab Q4H PRN PO 10/17/17 06:00 10/31/17 05:59 Hydromorphone HCl (Dilaudid Inj) 1.5 mg Q3H PRN IV 10/17/17 06:00 10/31/17 05:59 Hydromorphone HCl (Dilaudid Inj) 1 mg Q3H PRN IV 10/17/17 06:00 10/31/17 05:59 Physical Exam Date Time Temp Pulse Resp B/P (MAP) Pulse Ox O2 Delivery O2 Flow Rate FiO2 10/17/17 03:38 37.0 89 16 121/74 (90) 96 Room Air 10/16/17 23:46 37.0 92 16 117/78 (91) 93 Room Air 10/16/17 19:50 Room Air 10/16/17 19:50 36.8 90 16 116/75 (89) 99 Nasal Cannula 2.0 10/16/17 18:50 36.9 98 18 116/72 (87) 98 Nasal Cannula 2.0 10/16/17 17:50 36.4 97 18 116/77 (90) 98 Nasal Cannula 2.0 10/16/17 16:50 36.4 95 16 116/77 (90) 99 Nasal Cannula 2.0 10/16/17 16:20 36.8 95 16 125/81 (96) 97 Nasal Cannula 2.0 10/16/17 15:50 Nasal Cannula 10/16/17 15:50 99 Nasal Cannula 2.0 10/16/17 15:50 37.0 86 12 121/76 (91) 99 Nasal Cannula 2.0 10/16/17 15:30 37.2 98 18 122/82 98 Nasal Cannula 4 10/16/17 15:15 37.2 98 18 125/79 98 Nasal Cannula 4 10/16/17 15:05 98 18 125/84 98 Nasal Cannula 4 10/16/17 14:55 37.4 96 18 129/84 98 Nasal Cannula 4 10/16/17 14:45 96 18 133/85 98 Nasal Cannula 4 10/16/17 14:35 93 18 139/87 98 Nasal Cannula 4 10/16/17 14:25 93 18 134/85 98 Nasal Cannula 4 10/16/17 14:15 92 18 133/88 98 Nasal Cannula 4 10/16/17 14:05 83 18 139/97 100 Oxymask 10 10/16/17 13:55 78 18 138/85 99 Oxymask 10 10/16/17 13:49 36.0 82 18 130/91 100 Oxymask 10 10/16/17 08:37 36.7 76 16 112/77 100 Room Air General Appearance: no apparent distress Head: normocephalic, atraumatic Eyes: normal inspection, PERRL ENT: hearing grossly normal Neck: supple Respiratory/Chest: lungs clear, no respiratory distress, no accessory muscle use Cardiovascular: regular rate, rhythm Abdomen/GI: normal bowel sounds, non tender, soft Genitourinary - Male: + pertinent finding (+roth- draining concentrated yellow urine ) Back: + pertinent finding (hemovac drain w/ bloody output ) Extremities/Musculoskelatal: no calf tenderness, no pedal edema Neurologic/Psych: no motor/sensory deficits, alert, normal mood/affect, oriented x 3 Skin: normal color, warm/dry, no rash Laboratory Results Last 24 Hours Test 10/16/17 08:23 10/16/17 14:24 10/16/17 14:37 10/16/17 15:10 Bedside Glucose 196 mg/dl 301 mg/dl 255 mg/dl 236 mg/dl Test 10/16/17 16:22 10/16/17 16:57 10/16/17 20:25 10/17/17 08:02 Hemoglobin 12.6 g/dL Hematocrit 35.9 % Bedside Glucose 234 mg/dl 348 mg/dl Assessment & Plan Patient is a 69 y/o male, with PMHx of T2DM, HTN, HLD, and depression, s/p lumbar surgery by Dr. Goodrich on 10/16. Hospitalist team was consulted for medical management. s/p lumbar surgery by Dr. 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: - Hold nephrotoxic agents and renally dose medications as appropriate -- Hold Lisinopril, Metformin, IV Toradol (discussed w/ ortho, OK to stop) - Increase IVF 80 ml/hr to 125 m/hr - Recheck PRP this afternoon and follow QAM Hyperkalemia at 5.5, likely secondary to combination of NANDO/ACEi/steroid,NSAIDs: - Follow PRP - IVF, IV insulin, hold Lisinopril/Toradol - Obtain EKG T2DM w/ hyperglycemia secondary to IV Decadron- hgbA1c 10.9% in 07/2017, neuropathy: - Continue Levemir 60 u BID - Hold Metformin 1000 mg BID while inpatient - Continue Gabapentin 600 mg BID - BSG ACHS and ISS - Consult pharmacy for glycemic management- IV insulin gtt HTN: - Hold Lisinopril 10 mg daily due to NANDO - IV Hydralazine PRN HLD: Continue Tricor and Fish Oil Chronic hypomagnesemia: Continue Mag-Ox supplement Anxiety, depression: Continue Cymbalta 90 mg daily DVT prophylaxis: As per surgical team Code status: LEVEL I, FULL Dispo: As per primary team Reviewed: Pt Seen/Exam by Me History Physician Oim Architect supervision Note: I interviewed and examined the patient. Discussed with EUSEBIO Childers and agree with findings and plan as documented in the note. Any exceptions or clarifications are listed here: Scratch that Patient having some pain in the back. Otherwise doing okay. Reports his glucose at home is usually in the 200s for the morning fasting glucose. He often has glucoses over 300 during the day. He has been referred to endocrinology but has not yet seen him as an outpatient. Continues on insulin drip although glucose checks are finally improving. Vitals reviewed Gen: AAOx3, NAD HEENT: anicteric sclerae, EOMI CV: RRR no mgr nl S1S2 Pulm: CTAB no wcr Abd: +BS soft NT ND no masses or hernias Ext: no edema, 2+ DP pulses Skin: no rashes, warm/dry 52-year-old male with a history of diabetes mellitus type 2 uncontrolled on long -term insulin, hypertension, dyslipidemia, here status post lumbar fusion and decompression surgery. With severe hyperglycemia requiring insulin drip as well as NANDO. His hemoglobin A1c was severely uncontrolled in July 2017 and has not been rechecked since then-he believes his insulin was increased at that time to Levemir 60 units twice a day, along with his sliding scale NovoLog with meals. -Continue insulin drip as per pharmacy protocol and wean off when Accu-Cheks remain less than 150 and down to insulin 1 U/h or less -Consult diabetes education -Renal function slightly worse this afternoon, but potassium and hyperkalemia are improved-change to low potassium diet, continued insulin drip should help with any future hyperkalemia, continue IV fluids but can reduce to 80 mL's per hour again of normal saline, follow PRP in the morning. NANDO likely secondary to dehydration from hyperglycemia as well as hemodynamic changes intraoperatively. If worsening, will consult nephrology. Roth catheter was just removed, so will be on the look out for urinary retention as well. Check urinalysis -Would not discharged home until off insulin drip, renal function improving- this may not be for another 1-2 days Documented By: Nichol Mederos
--- NOTE | 2017-10-17 10:45 | Anesthesiology Progress Note ---
Anesthesia Post Op Note Date & Time Oct 17, 2017 at 10:45 Vital Signs Pain Intensity: 7.0 Vital Signs Past 12 Hours Date Time Temp Pulse Resp B/P (MAP) Pulse Ox O2 Delivery O2 Flow Rate FiO2 10/17/17 08:44 91 Room Air 10/17/17 08:43 Room Air 10/17/17 08:09 36.5 80 18 112/72 (85) 91 Room Air 10/17/17 03:38 37.0 89 16 121/74 (90) 96 Room Air 10/16/17 23:46 37.0 92 16 117/78 (91) 93 Room Air Notes Mental Status: alert / awake / arousable, participated in evaluation Pt Amnestic to Procedure: Yes Nausea / Vomiting: adequately controlled Pain: adequately controlled Airway Patency, RR, SpO2: stable & adequate BP & HR: stable & adequate Hydration State: stable & adequate Anesthetic Complications: no major complications apparent
[2017-10-17] MEDS ORDERED: HYDR-4383 PO (11:40)
--- NOTE | 2017-10-17 11:41 | Discharge Instructions ---
Discharge Instructions Date of Service Oct 17, 2017. Admission Reason for Admission: Lumbar Disc Herniation L4-L5 Discharge Discharge Diagnosis / Problem: same Discharge Goals Goal(s): Improve function Activity Recommendations Activity Limitations: as noted below Lifting Limitations: until after follow-up appointment Exercise/Sports Limitations: until after follow-up appointment . Instructions / Follow-Up Instructions / Follow-Up MEDICATIONS: Please take your prescriptions as instructed at your pre-op appointment. SPECIAL CARE: The following information is intended to answer some of the common questions and concerns regarding your surgery. Each patient is an individual and receives individual counselling throughout the course of treatment, from diagnosis to surgery all the way through recovery. What follows is not an exhaustive list, but should be a useful guide to some of the common questions and concerns patients have regarding their surgeries. These are not provided to keep you from calling us; rather, they give you something accurate and concrete to reference as you recover from your procedure. If you need us, we are available to you. As always, if you are not sure about something, call us at [phone]. MEDICAL EMERGENCIES: For these conditions, call 911 or go to your local hospital-based Emergency Department - not [facility] or equivalent. * Paralysis * Severe chest pain or difficulty breathing * Swelling or redness of either leg Spine procedures can be rather complex and though complications are rare, they do occur. In such cases, effective advice regarding emergency situations cannot always be addressed over the telephone. You may be referred to the emergency department for more effective management of your problem. Activity Limitations: It is important to give your body time to heal, so please limit your activities : * In general, don't do anything that moves your spine too much. You should avoid contact sports, twisting or heavy lifting while you recover. * 5-10 pounds is all you should attempt to lift. * You should not plan on driving for approximately 3 weeks and you should avoid traveling more than 30-45 minutes at a time. Longer trips should be broken down with walking breaks spaced appropriately. * Physical therapy is not usually required. * Walking and good posture practices will help you recover and regain your function. * Avoid straining or sudden changes in position. * In general, the goal is to take it easy and recover. Don't cause any new problems. Just relax. Showers: * Do not take a bath, use a Jacuzzi or hot tub or otherwise submerge your incision. * It is usually safe to take a shower 4-5 days after your surgery. * Your incision does not require any special creams or ointments. * Simply clean it with soap and water, dry and re-dress with a clean bandage afterwards. Incision: * Keep incision clean, dry and protected until your first follow-up appointment. * Some amount of drainage and redness is normal. Any drainage should be fairly clear and not have a foul odor. * If you feel anything is wrong or you have excessive drainage, please call us. * Your stitches and kyle will be removed 10-14 days after your surgery. At the time of your first post-op visit. * Neck surgeries are typically closed with a suture underneath the skin. The steri-strips over the incision should be maintained until we see you in the office. Bracing: * You may be provided with a back or neck brace to encourage good posture and prevent injury. It will remind you not to do too much as you heal and will alert others to the fact that you have had a surgery. * Back braces may be removed for showers and when you are resting at home. They must be worn when you are walking around for any period of time or for travel. * For neck surgery, you will likely be provided with two cervical collars. The soft collar ([place] or foam rubber) is worn most commonly throughout the day and while sleeping. The plastic collar (provided at the hospital) is for showering/bathing. * Except while eating, collars should remain in place. More specifically, bracing is provided for a purpose and should be worn. * Please obtain your brace or collars prior to your operation and bring them to the hospital with you on the day of surgery. * You should also bring your collars to your post-op appointment with Dr. Goodrich. You should always take good care of your body and practice healthy habits, especially following surgery. You should: * Follow your doctor's treatment plan * Sit and stand properly with good posture (ears over shoulders, shoulders over hips) Don't slouch * Learn to lift correctly * Exercise regularly (low-impact aerobic exercise is especially good, but check with your doctor first) * Generally, be up and walking for 5-10 minutes at a time at least 3-4 times per day from the day you get home * Increasing walking to tolerance until you can walk for 20-30 minutes at a time * Attain and maintain a healthy body weight * Eat healthy foods ( a well-balanced, low-fat diet rich in fruits and vegetables) and get enough calcium * Avoid excessive use of alcohol When to call our office - If you notice any of the following: * Increased pain not relieve by pain medicine * Fevers greater then 100 degrees F, chills or flu symptoms * Increased redness around incision * Drainage from the incision that is not clear * Any foul smelling drainage * Swelling or fluid collection beneath the skin Miscellaneous: * In the hospital, you may be given a walker or cane for support while walking. These are temporary needs and are intended to prevent injuries due to falls. You may discontinue them when you feel strong and steady enough on your feet. * Sleep in a comfortable position. We find that many patients find a lounge chair or recliner with several pillows to be beneficial in the early post-operative period. * The support stockings should be used for 7-10 days and may be discontinued when you are back to walking more and conducting usual household activities. No problem is insignificant. We are here to help you and get you well. Contact us at [phone]. Definitions: Foraminotomy: If part of the disc or a bone spur (osteophyte) is pressing on a nerve as it leaves the vertebra (through an exit called the foramen), a foraminotomy may be done. Otomy means "to make an opening." A foraminotomy is making the opening of the foramen larger, so the nerve can exit without being compressed. Laminotomy: Similar to the foraminotomy, a laminotomy makes a larger opening, this time in your bony plate protecting your spinal canal and spinal cord (the lamina). The lamina may be pressing on your nerve, so the surgeon may make more room for the nerves using a laminotomy. Laminectomy: Sometimes, a laminotomy is not sufficient. The surgeon may need to remove all or part of the lamina. This procedure is called a laminectomy. This can often be done at many levels without any harmful effects. Current Hospital Diet Patient's current hospital diet: Diabetes Type 2 Diet Discharge Diet Recommended Diet: Diabetes Type 2 Diet Procedures Procedures Performed: L4-L5 Posterior Lumbar Interbody Fusion Pending Studies Studies pending at discharge: no Laboratory Results Hemoglobin A1c Test 08/05/17 11:48 Range/Units Estimated Average Glucose 266 mg/dl Hemoglobin A1c 10.9 H 4.5-5.6 % Lipid Panel Test 08/05/17 11:48 Range/Units Triglycerides Level 280 H 0-150 mg/dl Cholesterol Level 243 H 0-200 mg/dl HDL Cholesterol 53 mg/dl Cholesterol/HDL Ratio 4.6 LDL Cholesterol, Calculated 134 mg/dl Medical Emergencies . Who to Call and When: Medical Emergencies: If at any time you feel your situation is an emergency, please call 911 immediately. . Non-Emergent Contact Non-Emergency issues call your: Primary Care Provider . "Provider Documentation" section prepared by Thomas Goodrich. . VTE Core Measure Inpt VTE Proph given/why not?: Treatment not indicated
[2017-10-17 11:47] VITALS: BP 134/81; PULSE 92; TEMP 36.9; O2SAT 96
--- NOTE | 2017-10-17 12:25 | ORTHOPEDICS PROGRESS NOTE ---
DATE: 10/17/2017 SUBJECTIVE: Doing well post short run, he is now out only about 20 hours from surgery. Better motion, decreased pain. He remains alert, oriented and cooperative. Pain controlled. OBJECTIVE: Vital signs stable. Lab work not indicated. ASSESSMENT: Status post posterior lumbar interbody fusion L4-L5. DISPOSITION: We will get him up and ambulatory here today. We will get him fed. I anticipate him up and walking today and discharge home tomorrow.
[2017-10-17 14:23] LABS: CALCIUM 7.8 mg/dl (8.5-10.1); CREATININE 1.7 mg/dl (0.60-1.40); POTASSIUM 4.8 mmol/L (3.5-5.1)
[2017-10-17] MEDS: COMBIGAN: ORDER AWAITING ACTION SCH ×2 (15:05→23:23)
[2017-10-17 15:20] VITALS: BP 120/77; PULSE 90; TEMP 36.9; O2SAT 94
[2017-10-17] MEDS ORDERED: NURSING VERBAL MED ORDER ONE ×3 (18:30→23:00)
[2017-10-17] MEDS: LATANOPROST 0.005% OP SOLN 2.5 ML BTL OPL SCH (20:46)
[2017-10-17 23:18] VITALS: BP 121/78; PULSE 87; TEMP 36.8; O2SAT 97
[2017-10-18] MEDS: INSULIN ASPART 100 UNITS/ML 3 ML PEN SC SCH ×3 (04:00→08:57)
[2017-10-18 06:04] LABS: HEMATOCRIT 24.5 % (42-52); HEMOGLOBIN 8.5 g/dL (14.0-18.0); MEAN CELL VOLUME 83.6 fL (80-100); MEAN CORPUSCULAR HGB CONC 34.7 g/dl (32-36); MEAN PLATELET VOLUME 9.2 fL (7.4-10.4); PLATELET COUNT 219 K/uL (130-400); RED CELL DISTRIBUTION WIDTH CV 12.7 % (11.5-14.5); RED CELL DISTRIBUTION WIDTH SD 38.8 fL (36.4-46.3); WHITE BLOOD COUNT 10.21 K/uL (4.8-10.8)
[2017-10-18 06:59] LABS: CALCIUM 8.3 mg/dl (8.5-10.1); CREATININE 1.33 mg/dl (0.60-1.40); POTASSIUM 3.9 mmol/L (3.5-5.1)
[2017-10-18 07:52] VITALS: BP 119/76; PULSE 87; TEMP 36.8; O2SAT 96
[2017-10-18] MEDS: COMBIGAN: ORDER AWAITING ACTION SCH (08:00)
[2017-10-18] MEDS: MAGNESIUM OXIDE 400 MG TAB PO SCH (08:51)
[2017-10-18] MEDS: POLYETHYLENE (MIRALAX) 17 GM PACK PO SCH (08:52)
[2017-10-18] MEDS: DORZOLAMIDE HCL 2% OPH SOLN 10 ML BTL OPL SCH (08:52)
[2017-10-18] MEDS: FENOFIBRATE 48 MG TAB PO SCH (08:52)
[2017-10-18] MEDS: DULOXETINE (CYMBALTA) 30 MG CAP PO SCH (08:52)
[2017-10-18] MEDS: DULOXETINE HCL 60 MG CAP PO SCH (08:52)
[2017-10-18] MEDS: NEPHROCAPS PO SCH (08:52)
[2017-10-18] MEDS: CHOLECALCIFEROL 1000 INTER.UNIT TAB PO SCH (08:52)
[2017-10-18] MEDS: OXYCODONE/ACETAMINOPHEN 5-325 TAB PO PRN (08:58)
[2017-10-18] MEDS: GABAPENTIN 300 MG CAP PO SCH (08:59)
[2017-10-18] MEDS ORDERED: INSULIN DETEMIR FLEXPEN/FLEX TOUCH 100 UNITS/ML 3ML SC SCH (09:00)
[2017-10-18] MEDS ORDERED: INSULIN GLARGINE SOLOSTAR 100 UNITS/ML 3 ML PEN SC SCH (09:00)
[2017-10-18 10:17] VITALS: BP 119/76; PULSE 87; TEMP 36.8; O2SAT 96
--- NOTE | 2017-10-18 10:18 | PROGRESS NOTE ---
DATE: 10/18/2017 CHIEF COMPLAINT: Status post L4-L5 posterior lumbar interbody fusion. PROGRESS: José Luis was seen and examined at bedside today. Overall, he is doing fairly well. He has been up and ambulating. He still has some soreness in the leg. He has no other complaints. IMPRESSION: Status post L4-5 posterior lumbar interbody fusion. PLAN: At this point, he is doing fairly well. He has been up and ambulating as pain is controlled. We will discharge him to home later this morning.
--- NOTE | 2017-11-03 16:55 | DISCHARGE SUMMARY ---
The patient was admitted to my service for spinal reconstructive surgery. He had posterior lumbar interbody fusion L4-L5. He did well, up and ambulatory day 1, discharged home day 2. He was improved, stable. Minimal complaints of pain. He was alert, oriented, no neurological deficit. Vital signs stable. Discharged home in improved stable condition. No apparent complications. Vital signs stable. He has medications at home and a followup appointment.
== END 2017-10-18 12:13 | disposition home or self-care (01) | DRG 460 ==
LOC: C.ACU 07:07 → C.3E 13:45 → ENRESERV 14:32
PROVIDERS: ADMIT Orthopaedic Surgery Orthopaedic Surgery of the Spine; ATTEND Orthopaedic Surgery Orthopaedic Surgery of the Spine
DX: M51.26 Other intervertebral disc displacement, lumbar region (principal); N17.9 Acute kidney failure, unspecified; Z79.52 Long term (current) use of systemic steroids; Z79.4 Long term (current) use of insulin; I10 Essential (primary) hypertension; E78.5 Hyperlipidemia, unspecified; G47.30 Sleep apnea, unspecified; F32.9 Major depressive disorder, single episode, unspecified; Z83.3 Family history of diabetes mellitus; Z82.49 Family history of ischemic heart disease and other diseases of the circulatory system; D50.0 Iron deficiency anemia secondary to blood loss (chronic); N18.3 Chronic kidney disease, stage 3 (moderate); E87.5 Hyperkalemia; T39.395A Adverse effect of other nonsteroidal anti-inflammatory drugs [NSAID], initial encounter; E11.65 Type 2 diabetes mellitus with hyperglycemia; T38.0X5A Adverse effect of glucocorticoids and synthetic analogues, initial encounter; E83.42 Hypomagnesemia; F41.9 Anxiety disorder, unspecified